=== PATIENT | female | born 1945 | race Caucasian/White ===

== ENCOUNTER → 2020-06-21 | Day surgery (SDC) | payer MEDICARE, OTHER ==
[~2020-06-21] MED LIST: CALCIUM; DIOVAN; DIOVAN HCT 1601 EAC1 PO; LEXAPRO 10MG TA10 MG PO; LIPITOR20 MG PO; MVI PO; VERAPAMIL ER240 M1 PO; VIT D3 PO
[2020-06-21 08:39] LABS: HCT 39.3 % (37.0-47.0); HGB 13.2 g/dl (12.5-16.0); MCH 30.9 pg (25.0-31.0); MCHC 33.6 g/dL (32.0-36.0); RBC 4.27 M/uL (4.20-5.40); RDW 14.2 % (11.5-14.0); WBC 3.8 K/uL (4.0-10.5)
[2020-06-21 09:01] LABS: ALBUMIN 3.9 g/dL (3.4-5.0); BILIRUBIN - TOTAL 0.6 mg/dL (0.2-1.0); BUN/CREAT RATIO (CALC) 17.6 RATIO; CREATININE 0.74 mg/dL (0.51-0.95); GLOBULIN (CALCULATION) 3.7 g/dL; POTASSIUM 4.3 mmol/L (3.5-5.1); TOTAL PROTEIN 7.6 g/dL (6.4-8.2)
== END | disposition home or self-care (01) ==
LOC: FAS 07:55
PROVIDERS: Surgery
DX: K58.9 Irritable bowel syndrome, unspecified (principal); D50.9 Iron deficiency anemia, unspecified; E78.00 Pure hypercholesterolemia, unspecified; I10 Essential (primary) hypertension; G43.909 Migraine, unspecified, not intractable, without status migrainosus; M85.80 Other specified disorders of bone density and structure, unspecified site; R39.15 Urgency of urination; R73.9 Hyperglycemia, unspecified; Z90.49 Acquired absence of other specified parts of digestive tract; Z98.890 Other specified postprocedural states; Z90.710 Acquired absence of both cervix and uterus; Z20.822 Contact with and (suspected) exposure to COVID-19
CPT/HCPCS: 36415; 80053; 88305; J1610; J2704; J7120